=== PATIENT | female | born 1945 | race Caucasian/White ===

== ENCOUNTER 2023-07-20 22:25 | Emergency (ER) | payer OTHER ==
[~2023-07-20] VITALS: Ht 165.1 cm; Wt 118.8 kg
[~2023-07-20 22:25] MED LIST: APRESOLINE25 MG PO; BRILINTA60 MG PO; CIPRO500 MG PO; HUMALOG100 UNIT/1 SC; LANTUS SOL100 UNIT/1 SC; LASIX20 MG PO; MUCINEX ER600 MG PO; OMNICEF300 MG PO; PANTOPRAZOLE SO40 MG PO; ROSUVASTATIN CA20 MG PO; TRAMADOL HCL50 MG PO
[2023-07-20] MEDS ORDERED: PROTONIX40 M1 IV (22:39)
[2023-07-20] MEDS ORDERED: BENADRYL25 M2 PO (22:39)
[2023-07-21] MEDS ORDERED: PREDNISONE20 M1 PO (02:54)
[2023-07-21] MEDS ORDERED: LEVOFLOXACIN750 M2 PO (02:54)
== END 2023-07-21 03:04 | disposition home or self-care (01) ==
LOC: ED 22:25
DX: J40 Bronchitis, not specified as acute or chronic (principal); R07.89 Other chest pain; I25.2 Old myocardial infarction; E11.9 Type 2 diabetes mellitus without complications; Z88.8 Allergy status to other drugs, medicaments and biological substances; Z95.5 Presence of coronary angioplasty implant and graft

== ENCOUNTER → 2023-10-17 | Outpatient (CLI) | payer OTHER ==
[~2023-10-17] MED LIST changes: +BENADRYL25 M2 PO; +LEVOFLOXACIN750 M2 PO; +PREDNISONE20 M1 PO; +PROTONIX40 M1 IV
== END | disposition home or self-care (01) ==
LOC: CARD 09-12 13:00
PROVIDERS: ATTEND Nurse Practitioner
DX: I50.9 Heart failure, unspecified (principal); I51.7 Cardiomegaly; J20.9 Acute bronchitis, unspecified

== ENCOUNTER → 2023-11-17 | Outpatient (CLI) | payer OTHER ==
[~2023-11-17] MED LIST changes: +IOHEXOL 300 MG/ML 100 ML VIAL IV ONE
== END | disposition home or self-care (01) ==
LOC: CT 11-13 13:00 → LAB 11-15 00:49 → CT 11-15 16:00 → LAB 11-15 16:00
PROVIDERS: ATTEND Internal Medicine Critical Care Medicine
DX: Z01.812 Encounter for preprocedural laboratory examination (principal); J18.9 Pneumonia, unspecified organism; I51.7 Cardiomegaly; I25.10 Atherosclerotic heart disease of native coronary artery without angina pectoris; R91.8 Other nonspecific abnormal finding of lung field

== ENCOUNTER 2023-11-22 22:29 | Emergency (ER) | payer OTHER ==
[~2023-11-22] VITALS: Wt 120.0 kg
[~2023-11-22 22:29] MED LIST changes: -IOHEXOL 300 MG/ML 100 ML VIAL IV ONE
[2023-11-22] MEDS ORDERED: hydrALAZINE hydrochloride 20 MG/ML VIAL IV ONE ×3 (23:00→23:40)
[2023-11-22] MEDS ORDERED: niCARdipine hydrochloride 25 MG in SODIUM CHLORIDE 0.9% 240 ML IV SCH (23:45)
[2023-11-23] MEDS ORDERED: SODIUM CHLORIDE 0.9% 250 ML BAG IV ONE (08:04)
== END 2023-11-22 23:55 | disposition short-term general hospital (02) ==
LOC: ED 22:29
DX: I63.9 Cerebral infarction, unspecified (principal); Z88.8 Allergy status to other drugs, medicaments and biological substances; I25.10 Atherosclerotic heart disease of native coronary artery without angina pectoris; E11.9 Type 2 diabetes mellitus without complications; I25.2 Old myocardial infarction; Z95.5 Presence of coronary angioplasty implant and graft

== ENCOUNTER 2025-04-09 16:52 | Emergency (ER) | payer OTHER ==
[~2025-04-09] VITALS: Ht 165.1 cm; Wt 114.3 kg
[2025-04-09] MEDS ORDERED: SODIUM CHLORIDE 0.9% 1,000 ML IV ONE (17:50)
[2025-04-09] MEDS ORDERED: IOHEXOL 300 MG/ML 100 ML VIAL IV ONE (18:05)
[2025-04-09 18:16] LABS: BASO # 0.1 10*3/uL (0.0-0.1); BASO % 0.5 % (0.0-1.0); EOS # 0.2 10*3/uL (0.0-0.4); EOS % 1.6 % (1.0-4.0); MEAN CELL VOLUME 85.7 fl (81.0-99.0); MEAN CORPUSCULAR HGB 27.2 pg (27.0-31.0); MEAN PLATELET VOLUME 9.9 fl (9.6-12.3); MONO # 0.6 10*3/uL (0.1-1.0); MONO % 5.3 % (3.0-9.0); NEUT # 8.2 10*3/uL (2.3-7.9); NEUT % 75.3 % (47.0-73.0); NUCLEATED RED BLOOD CELL 0.0 % (0.0-0.0); NUCLEATED RED BLOOD CELL 0.0 10*3/uL (0.0-0.0); PLATELET COUNT AUTOMATED 274 10*3/uL (130-400); RED CELL DISTRI WIDTH 14.7 % (0-14.5)
[2025-04-09 18:35] LABS: BUN 22.0 mg/dl (9-23)
[2025-04-09 21:22] LABS: BILIRUBIN Negative (Negative); BLOOD 1+ (Negative); CLARITY Turbid (Clear); COLOR Yellow (Yellow); KETONE Negative (Negative); LEUKO ESTERASE 3+ (Negative); NITRITE Negative (Negative); PH 6.0 (4.5-8.0); SPECIFIC GRAVITY 1.010 (1.001-1.030); UROBILINOGEN 1.0 E.U./dl (0.0-1.0)
[2025-04-09 21:42] LABS: BACTERIA 3+; WBC TNTC wbc/hpf (0-5)
[2025-04-09] MEDS ORDERED: Ciprofloxacin Hydrochloride 500 MG TAB PO ONE (21:50)
[2025-04-09] MEDS ORDERED: CIPRO500 MG PO (21:54)
== END 2025-04-09 22:14 | disposition home or self-care (01) ==
LOC: ED 16:52
PROVIDERS: Nurse Practitioner Family
DX: N39.0 Urinary tract infection, site not specified (principal); R21 Rash and other nonspecific skin eruption; I25.10 Atherosclerotic heart disease of native coronary artery without angina pectoris; Z88.8 Allergy status to other drugs, medicaments and biological substances; Z79.899 Other long term (current) drug therapy; Z95.5 Presence of coronary angioplasty implant and graft